=== PATIENT | female | born 1955 | race Caucasian/White ===

== ENCOUNTER 2017-12-20 10:10 | Day surgery (SDC) | payer OTHER | END 2017-12-20 15:30 | disposition home or self-care (01) | LOC: CIR.AMB 10:10 | DX: C54.1 Malignant neoplasm of endometrium (principal) ==

== ENCOUNTER 2020-05-16 08:35 | Outpatient (CLI) | payer OTHER | END 2020-05-16 09:06 | disposition home or self-care (01) | LOC: RAD 08:35 | PROVIDERS: ATTEND Specialist | DX: I10 Essential (primary) hypertension (principal); I27.89 Other specified pulmonary heart diseases; R10.84 Generalized abdominal pain ==